=== PATIENT | female | born 2000 | race Caucasian/White ===

== ENCOUNTER 2023-04-17 06:53 | Outpatient (CLI) | payer BC, SELFPAY ==
--- NOTE | 2023-04-17 07:15 | CRLHL7_ITS ---
For Patients: As a result of the Century Cures Act, medical imaging exams and procedure reports are released immediately into your electronic medical record. You may view this report before your referring provider. If you have questions, please contact your health care provider. INDICATION: First trimester scan, establish dates. COMPARISON: None. TECHNIQUE: Real-time sarmiento-scale imaging of the pelvis was performed. FINDINGS: Sonographic imaging demonstrates a single living intrauterine gestation. The embryo demonstrates a cardiac rate measuring 91 beats per minute. The embryo`s crown-rump length measurement of 0.3 cm corresponds to a gestational age of 5 weeks 6 days with a sonographic due date of 12/12/2023. There is a normal-appearing yolk sac. There are no gross abnormalities noted within the embryo at this early state of development. The gestational sac has a normal appearance. There is a perigestational hemorrhage measuring 2.2 x 0.5 x 0.7 cm. The amount of fluid within the sac appears appropriate for gestational age. The cervix is closed. A right-sided uterine fibroid is present measuring 1.2 x 1.1 x 1.1 cm. Corpus luteal cyst right ovary noted measuring 3.8 x 2.5 x 2.6 cm. Normal left ovary. There are no suspicious fluid collections noted in the cul-de-sac. IMPRESSION: Single living intrauterine measuring 5 weeks 6 days and sonographic due date 12/12/2023. heart rate somewhat low at 91 beats per minute and follow-up recommended in 3 weeks. Subchorionic hemorrhage measuring 2.2 x 0.5 x 0.7 cm. Dictated by Bj Shoemaker MD @ 04/17/2023 9:57:36 AM (Electronically Signed)
== END 2023-04-17 06:54 | disposition home or self-care (01) ==
PROVIDERS: PCP Family Medicine; Visit Provider Registered Nurse
DX: Z34.91 Encounter for supervision of normal pregnancy, unspecified, first trimester (principal); O20.9 Hemorrhage in early pregnancy, unspecified; Z3A.01 Less than 8 weeks gestation of pregnancy
CPT/HCPCS: 76817

== ENCOUNTER 2023-04-17 08:15 | Outpatient (CLI) | payer BC, SELFPAY ==
[2023-04-17 12:19] LABS: Chlamydia DNA Amplified* NOT DETECTED (No Detected); GC DNA Amplified* NOT DETECTED (No Detected)
== END 2023-04-17 08:16 | disposition home or self-care (01) ==
PROVIDERS: PCP Family Medicine; Visit Provider Registered Nurse
DX: Z34.91 Encounter for supervision of normal pregnancy, unspecified, first trimester (principal); Z3A.08 8 weeks gestation of pregnancy
CPT/HCPCS: 86592; 86703; 86762; 86787; 86803; 86850; 86900; 86901; 87086; 87340; 87491; 87591

== ENCOUNTER 2023-05-02 13:44 | Outpatient (CLI) | payer BC, SELFPAY ==
--- NOTE | 2023-05-02 14:00 | CRLHL7_ITS ---
For Patients: As a result of the Century Cures Act, medical imaging exams and procedure reports are released immediately into your electronic medical record. You may view this report before your referring provider. If you have questions, please contact your health care provider. INDICATION: Follow-up viability COMPARISON: 04/17/2023 TECHNIQUE: Real-time sarmiento-scale imaging of the pelvis was performed. FINDINGS: Sonographic imaging demonstrates a single living intrauterine gestation. The embryo demonstrates a regular cardiac rate measuring 169 beats per minute. The embryo`s crown-rump length measurement of 1.7 cm corresponds to a gestational age of 8 weeks 1 day with a sonographic due date of 12/11/2023. There is a normal-appearing yolk sac. There are no gross abnormalities noted within the embryo at this early state of development. The gestational sac has a normal appearance. There is no evidence of a perigestational hemorrhage. The amount of fluid within the sac appears appropriate for gestational age. The ovaries are of normal size. Corpus luteal cyst right ovary. There are no suspicious fluid collections noted in the cul-de-sac. IMPRESSION: Single living intrauterine with sonographic gestational age 8 weeks 1 day and sonographic due date 12/11/2023. Dictated by Bj Shoemaker MD @ 05/06/2023 8:40:01 AM (Electronically Signed)
== END 2023-05-02 13:45 | disposition home or self-care (01) ==
LOC: US 13:45
PROVIDERS: PCP Family Medicine; Visit Provider Registered Nurse
DX: Z34.91 Encounter for supervision of normal pregnancy, unspecified, first trimester (principal); Z3A.08 8 weeks gestation of pregnancy
CPT/HCPCS: 76817

== ENCOUNTER 2023-07-24 06:48 | Outpatient (CLI) | payer BC, SELFPAY ==
--- NOTE | 2023-07-24 07:15 | CRLHL7_ITS ---
For Patients: As a result of the Century Cures Act, medical imaging exams and procedure reports are released immediately into your electronic medical record. You may view this report before your referring provider. If you have questions, please contact your health care provider. OB ULTRASOUND ??? ANATOMY SURVEY ROSARIO by LMP: 12/11/2022. GA: 19 w, 6 d. INDICATION: anatomy. FINDINGS: position: Vertex. Cervix: Visualized. Technique: Transabdominal. Length of closed cervix: 3.4 cm. Placenta/cord: Anterior. Technique: Transabdominal. Placenta tip to internal OS: 15.8 cm. Umbilical Cord: 3-vessel cord. Placenta insertion: Central. Amniotic Fluid: 4.8 cm SDP (greater than/equal to: 2- less than 8 cm). SURVEY: Observed Structures Cerebellum: Yes. 2.1 cm; 21 w 0 d. Cisterna Magna: Yes. 6 mm. Nuchal Fold: Yes. 4 mm. Lateral Ventricle: Yes. 5 mm. CSP: Yes. Midline Falx: Yes. Choroid Plexus: Yes. Spine: Yes. Stomach: Yes. Abd Cord Insertion: Yes. Urinary Bladder: Yes. Kidneys: Yes. Diaphragm: Yes. Nose/lips: Yes. Orbital view: Yes. Profile: Yes. Upper Extremities: Yes. Lower Extremities: Yes. Hands: Yes. Feet: Yes, however right foot is poorly seen. Four-Chamber Heart: Yes. LVOT: Yes. RVOT: Yes. 3VV: Yes. 3VTV: Yes. BPD: 4.7 cm. 20 w 2 d, 70 percent. HC: 17.5 cm. 20 w 0 d, 50 percent. AC: 14.8 cm. 20 w 0 d, 51 percent. FL: 2.9 cm. 19 w 0 d, 17 percent. FL/AC: 20 percent. HC/AC Ratio: 1.2. Heart rate: 150 beats per minute. age by this US: 20 w 0 d. ROSARIO by this US: 12/11/2023. EFW: 305 g. Weight: 0 lbs, 11 oz. Percentile by ROSARIO: 34 percent. IMPRESSION: Single live intrauterine gestation. No gross anomalies visualized. Right foot poorly seen. Cielo Aguilera M.D. Diagnostic/Breast Radiologist [employer] [email or web address] [email or web address] wright/Dictated by: Cielo Aguilera MD @ 07/25/2023 2:30:00 PM (Electronically Signed)
== END 2023-07-24 06:49 | disposition home or self-care (01) ==
LOC: US 06:48
PROVIDERS: PCP Family Medicine; Visit Provider Registered Nurse
DX: Z34.92 Encounter for supervision of normal pregnancy, unspecified, second trimester (principal); Z3A.19 19 weeks gestation of pregnancy
CPT/HCPCS: 76805

== ENCOUNTER 2023-07-31 18:19 | Emergency (ER) | payer BC, SELFPAY ==
[2023-07-31 18:23] VITALS: BP 121/72; PULSE 137; RESP 18; TEMP 37.6; O2SAT 98; BMI 26.6
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
[2023-07-31 19:13] VITALS: O2SAT 97
[2023-07-31] MEDS: ONDANSETRON 2 MG/ML inj 4 MG IVP (19:36)
[2023-07-31] MEDS: 0.9 % SODIUM CHLORIDE 1000 ml 1,000 ML IV (19:37)
[2023-07-31 19:43] LABS: Lactate* 1.3 mmol/L (0.5-1.9)
[2023-07-31 19:47] LABS: Basophils Absolute Auto 0.01 K/uL (0.00-0.30); Basophils Percent Auto 0.1 % (0.0-3.0); Eosinophils Absolute Auto 0.01 K/uL (0.00-0.50); Eosinophils Percent Auto 0.1 % (0.0-7.0); Immature Granulocytes Abs Auto 0.05 K/uL (0.00-0.30); Immature Granulocytes Pct Auto 0.5 %; Lymphocytes Percent Auto 3.7 % (20-44); Mean Corpuscular HGB Conc 34 gm/dL (32-36); Mean Corpuscular Hemoglobin 31 pg (26-34); Mean Corpuscular Volume 90 fL (80-100); Monocytes Percent Auto 5.4 % (0.0-11.0); Neutrophils Percent Auto 90.2 % (42.0-72.0); Platelet Count* 191 K/uL (140-440); RDW Coefficient of Variation % 12.6 % (11.5-15.5); Red Blood Count 3.87 m/uL (4.00-5.20); White Blood Count* 10.61 K/uL (4.50-11.00)
[2023-07-31 19:49] LABS: PCR FLU A Negative PCR FLU A (Negative); PCR FLU B Negative PCR FLU B (Negative); PCR RSV Negative PCR RSV (Negative); SARS PCR* POSITIVE SARS-CoV-2 (Negative)
[2023-07-31 19:50] LABS: Slide Review Reflex No
[2023-07-31 20:00] LABS: Appearance Urine Clear (Clear); Bilirubin Urine Negative (Negative); Blood Urine Negative (Negative); Color Urine Yellow (Yellow); Glucose Urine Negative (Negative); Ketones Urine 4+ (Negative); Leukocyte Esterase Urine Trace (Negative); Nitrite Urine Negative (Negative); Protein Urine Negative (Negative); Specific Gravity Urine >= 1.030 (1.000-1.030); Urobilinogen Urine 0.2 (0.2-1.0)
[2023-07-31 20:02] LABS: Chloride* 105 mmol/L (96-114)
[2023-07-31 20:03] LABS: Albumin* 4.1 g/dL (3.3-5.0); Sodium* 132 mmol/L (135-149)
[2023-07-31 20:04] LABS: Potassium* 3.2 mmol/L (3.6-5.1)
[2023-07-31 20:06] LABS: Alanine Aminotransferase* 16 U/L (4-35); Alkaline Phosphatase* 55 U/L (40-150); Anion Gap 10 mEq/L (7-15); Aspartate Amino Transferase* 22 U/L (12-35); Bilirubin Total* 0.3 mg/dL (0.1-1.5); Blood Urea Nitrogen* 4 mg/dL (5-24); Carbon Dioxide* 17 mmol/L (20-32); Creatinine* 0.4 mg/dL (0.5-1.5); Estimated Glomerular Filt Rate 142 ml/min; Glucose* 94 mg/dL (60-115); Total Protein* 7.2 g/dL (6.0-8.3)
[2023-07-31 20:07] LABS: Calcium* 8.9 mg/dL (8.4-10.6)
[2023-07-31 20:09] LABS: C Reactive Protein* 1.7 mg/dL (0.5-1.0)
[2023-07-31 20:27] LABS: Bacteria Urine Moderate; RBC Urine 0-2 (0-2); Squamous Epithelial Cell Urine Moderate (None-Few)
--- NOTE | 2023-07-31 21:03 | PC.NURSE ---
dop tones 150-160s per OB door installer. pt discharged.
[2023-07-31 21:04] VITALS: BP 126/67; PULSE 98; RESP 18; O2SAT 98
== END 2023-07-31 21:04 | disposition home or self-care (01) ==
PROVIDERS: Emergency Provider Family Medicine; PCP Registered Nurse
DX: U07.1 COVID-19 (principal); Z3A.21 21 weeks gestation of pregnancy
CPT/HCPCS: 36415; 80053; 81001; 83605; 85025; 86140; 87086; 87631; 94761; 96374; 99283; 99284; J2405; J7030

== ENCOUNTER 2023-08-22 14:38 | Outpatient (CLI) | payer BC, SELFPAY ==
--- NOTE | 2023-08-22 15:00 | CRLHL7_ITS ---
For Patients: As a result of the Century Cures Act, medical imaging exams and procedure reports are released immediately into your electronic medical record. You may view this report before your referring provider. If you have questions, please contact your health care provider. INDICATION: Follow-up right foot COMPARISON: 07/24/2023 TECHNIQUE: Real time sarmiento scale imaging of the fetus was performed as well as color Doppler analysis of the umbilical vessels. FINDINGS: Sonographic imaging demonstrates a single living intrauterine gestation. Fetus demonstrates a regular cardiac rate of 150 beats per minute. Fetus has a vertex position. The placenta lies anteriorly. Amniotic fluid volume appears normal. Single deepest vertical pocket: 5.2 cm. The cervix is closed and measures 3.6 cm in length. Normal feet. IMPRESSION: Normal feet. Dictated by Bj Shoemaker MD @ 08/22/2023 3:38:13 PM (Electronically Signed)
== END 2023-08-22 14:39 | disposition home or self-care (01) ==
LOC: US 14:38
PROVIDERS: PCP Registered Nurse; Visit Provider Registered Nurse
DX: O35.HXX0 Maternal care for other (suspected) fetal abnormality and damage, fetal lower extremities anomalies, not applicable or unspecified (principal)
CPT/HCPCS: 76816

== ENCOUNTER 2023-09-19 10:03 | Outpatient (CLI) | payer BC, SELFPAY | END 2023-09-19 10:04 | disposition home or self-care (01) | LOC: NFLDREF 09-21 10:42 | PROVIDERS: PCP Registered Nurse; Referring Provider Registered Nurse; Visit Provider Obstetrics & Gynecology | DX: Z34.90 Encounter for supervision of normal pregnancy, unspecified, unspecified trimester (principal) | CPT/HCPCS: 86592 ==

== ENCOUNTER 2023-10-01 13:53 | Outpatient (CLI) | payer BC, SELFPAY ==
[2023-10-01 14:02] VITALS: PULSE 79; O2SAT 100
[2023-10-01 14:15] VITALS: BP 111/69; PULSE 75
[2023-10-01 14:16] VITALS: TEMP 36.7
--- NOTE | 2023-10-01 14:56 | PC.OBNST ---
NST Note NST Note Start: 10/01/23 13:54 Freq: ONCE Status: Active Protocol: Document 10/01/23 14:55 DARLIN (Rec: 10/01/23 14:56 DARLIN [id number]) NST Note 3 Para (# of births) 1 EDC 12/12/23 Gestational Age In Weeks & Days 29 Weeks & 5 Days Patient Presented with Complaint(s) of Decreased movement Reactive Yes Appropriate for Gestational Age Yes RENAN Chew Date 10/01/23 Reactive Yes Appropriate for Gestational Age Yes RENAN Dubois RN Date 10/01/23 OB NST charge Yes Complete NST Note via Write Note Yes The provider's electronic signature indicates the NST is reactive/appropriate for gestational age. *Note to provider: If an addendum is required, open the patient's chart and click on the note under the Nurse/Allied Health tab.
== END 2023-10-01 14:50 | disposition home or self-care (01) ==
LOC: OB OUT 13:53 → OB 13:55
PROVIDERS: Visit Provider Obstetrics & Gynecology
DX: O36.8130 Decreased fetal movements, third trimester, not applicable or unspecified (principal); Z3A.29 29 weeks gestation of pregnancy
CPT/HCPCS: 59025; G0463

== ENCOUNTER 2023-10-15 08:13 | Outpatient (CLI) | payer BC, SELFPAY ==
[2023-10-15 08:25] VITALS: BP 112/67; PULSE 123; RESP 16; TEMP 36.9
[2023-10-15 08:27] VITALS: PULSE 156; O2SAT 99
[2023-10-15 08:55] LABS: Amnisure Rom* Negative
[2023-10-15 08:57] LABS: Clue Cells <20% Clue Cells Seen (None Seen); Trichomonas No Trichomonas Seen (None Seen); Yeast No Yeast Seen (None Seen)
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
--- NOTE | 2023-10-15 11:11 | P.OBLDTN_ITS ---
OB - Triage/Final Diagnosis Visit Information Narrative: Patient is 23 yr old G3/1 at 31.5 wk gestation. She presented to labor and delivery triage with concern for leaking of fluid. She reports gush of clear fluid last night. She had 3-4 more leakage on her peripad last overnight. This morning she felt another trickle of fluid after voiding on the toilet. Her peripad felt damped but not saturated. She is having good movements, denies uterine cramping and vaginal bleeding. No recent intercourse. She denies UTI symptoms. She also denies vaginal irritation and itching. Pt report of intermittent tachycardia and SOB. She denies signs of fainting. She will continue to watch for signs of worsening symptoms and may consider ECG then. Her vitals were stable in triage. FHT was reactive for gestation. Intermittent contractions on the TOCO. Abdomen is soft to palpate. Assessment: Bacterial Vaginosis Plan: Discussed treatment for BV based on wet prep, symptoms, and physical exam suggestive of asymptomatic BV infection. Vaginal metrogel 0.75% 5g x 5 days, at night insert vaginally. Reviewed when to return to clinic. She has appt on 10/17/2023 with [facility] US. Will plan to add DORINDA. I,?Светлана Rios APRN, DONAVON, was present for visit and have reviewed and agree with documentation by the Certified Nurse Midwifery Student. Evaluation Laboratory results: Laboratory Tests 10/15/23 Range/Units 08:40 Membrane Rupture Negative Vaginal Trichomonas No Trichomonas Seen (None Seen) Vaginal Yeast No Yeast Seen (None Seen) Vaginal Clue Cells <20% Clue Cells Seen (None Seen) Vital signs: Vital Signs - 24 hr 10/15/23 08:25 10/15/23 08:25 10/15/23 08:27 Temperature 98.5 F Pulse Rate 123 H Respiratory Rate 16 Blood Pressure 112/67 Pulse Oximetry 99 Comments: VS: See nurse?s notes General Appearance: Alert, appropriate appearance for age. No acute distress Chest/Respiratory Exam: Normal chest wall and respirations. Unlabored breathing. Pelvic Exam Female: Normal external female anatomy. Labia minora with erythema and thin off white discharge. No fishy odor, PH > 4.5. Significant discomfort with vaginal exam hence speculum exam was not done per patient request to stop. AmniSure negative. Wet prep shows <20% clue cells. Psychiatric Exam: Alert and oriented, appropriate affect. Fetus (Single) Heart Rate Baseline: 135 Acute Specialist Variability: Moderate (6-25) Monitor Accelerations: Absent Monitor Decelerations: None Final Diagnosis (1) Bacterial vaginosis in : Status: Acute Problem details: Rx sent for Metrogel Hs x 5 days. Has clinic visit with US on . Routine care. (2) 31 to 32 weeks gestation of : Status: Acute
--- NOTE | 2023-10-15 12:03 | PC.OBNST ---
NST Note NST Note Start: 10/15/23 08:19 Freq: ONCE Status: Discharge Protocol: Document 10/15/23 09:30 CHEYENNE (Rec: 10/15/23 12:03 CHEYENNE [id number]) NST Note 3 Para (# of births) 1 EDC 12/12/23 Gestational Age In Weeks & Days 31 Weeks & 5 Days Patient Presented with Complaint(s) of Leaking fluid,Other Other Complaints Feels off Reactive Yes Appropriate for Gestational Age Yes RENAN Bellamy RN Date 10/15/23 Reactive Yes Appropriate for Gestational Age Yes RENAN Dubois RN Date 10/15/23 OB NST charge Yes Complete NST Note via Write Note Yes The provider's electronic signature indicates the NST is reactive/appropriate for gestational age. *Note to provider: If an addendum is required, open the patient's chart and click on the note under the Nurse/Allied Health tab.
== END 2023-10-15 10:03 | disposition home or self-care (01) ==
LOC: OB OUT 08:15 → OB 08:16
PROVIDERS: Visit Provider Advanced Practice Midwife
DX: Z34.93 Encounter for supervision of normal pregnancy, unspecified, third trimester (principal); Z3A.32 32 weeks gestation of pregnancy
CPT/HCPCS: 59025; 84112; 87210; G0463

== ENCOUNTER 2023-10-17 12:55 | Outpatient (CLI) | payer BC, SELFPAY ==
--- NOTE | 2023-10-17 13:00 | US_ITS ---
Patient: CHAPIS MALDONADO Facility:?[facility] Patient ID:?[id number] Site Patient ID:?[id number]. Site :?[id number] Study:?US-OB Pelvis OB F/U with DORINDA-10/17/2023 1:58:05 PM Ordering Physician:Anne Baltazar Final Report: INDICATION: Third trimester scan, evaluate growth. COMPARISON: 08/22/2023 TECHNIQUE: Real time sarmiento scale imaging of the fetus. FINDINGS: Sonographic imaging demonstrates a single living intrauterine gestation. Fetus demonstrates a regular cardiac rate of 149 beats per minute. Fetus has a vertex position. The placenta lies anteriorly. Amniotic fluid volume appears normal and there is a single deepest vertical pocket: 5.3 cm. DORINDA 13.2 cm. The estimated weight is 2009gm which lies at the 59th %. On the prior OB ultrasound exam dated 07/24/2023 the estimated weight was at the 34th%. BPD 51st percentile. HC is 51st percentile. AC is 63rd percentile. FL 55th percentile. The HC/AC ratio measures 1.06 range (0.96-1.12). IMPRESSION: Sonographic gestational age 32 weeks 5 days and sonographic due date of 12/07/2023. Sonographic age is 5 days ahead of the clinical age. Estimated weight 59th percentile. Abdominal circumference 63rd percentile. Dictated by Bj Shoemaker MD @ 10/18/2023 9:19:06 AM Signed by:?Bj Shoemaker MD @10/18/2023 9:19:06 AM (Electronic Signature)
== END 2023-10-17 12:56 | disposition home or self-care (01) ==
LOC: US 12:55
PROVIDERS: Visit Provider Obstetrics & Gynecology
DX: Z34.93 Encounter for supervision of normal pregnancy, unspecified, third trimester (principal); Z3A.32 32 weeks gestation of pregnancy
CPT/HCPCS: 76816

== ENCOUNTER 2023-11-04 17:49 | Outpatient (CLI) | payer BC, SELFPAY ==
[2023-11-04] VITALS (12 sets, daily range): BP systolic 108; BP diastolic 70; PULSE 94–123; RESP 16; TEMP 36.9; O2SAT 98–99
[2023-11-04 19:15] LABS: Appearance Urine Clear (Clear); Bilirubin Urine Negative (Negative); Blood Urine Negative (Negative); Color Urine Yellow (Yellow); Glucose Urine Negative (Negative); Ketones Urine Trace (Negative); Leukocyte Esterase Urine Negative (Negative); Nitrite Urine Negative (Negative); Protein Urine Trace (Negative); Urobilinogen Urine 0.2 (0.2-1.0)
[2023-11-04 19:16] LABS: Amnisure Rom* Negative
[2023-11-04 19:26] LABS: Bacteria Urine Few; RBC Urine 0-2 (0-2); Squamous Epithelial Cell Urine Few (None-Few)
[2023-11-04 19:52] LABS: Hematocrit 35.8 % (33.0-51.0); Hemoglobin* 11.5 gm/dL (12.0-16.0); Mean Corpuscular HGB Conc 32 gm/dL (32-36); Mean Corpuscular Hemoglobin 31 pg (26-34); Mean Corpuscular Volume 97 fL (80-100); Platelet Count* 246 K/uL (140-440); Red Blood Count 3.68 m/uL (4.00-5.20); White Blood Count* 13.02 K/uL (4.50-11.00)
[2023-11-04 19:59] LABS: Slide Review Reflex No
[2023-11-04 21:14] LABS: Bacterial Vaginosis* Negative (Negative); Candida glab/krus NOT DETECTED (No Detected); Candida species NOT DETECTED (No Detected); Trichomonas vaginalis NOT DETECTED (No Detected)
--- NOTE | 2023-11-04 21:22 | US_ITS ---
Patient: CHAPIS MALDONADO Facility:?[facility] Patient ID:?[id number] Site Patient ID:?[id number]. Site :?[id number] Study:?US-OB Pelvis LIMITED-11/04/2023 9:56:18 PM Ordering Physician:SERAFIN SPAIN Final Report: Indication: RULE OUT PLACENTA ABRUPTION Technique: Grayscale and color Doppler ultrasound of the fetus performed. Comparison: 10/17/2023 Findings: heart rate 152 beats per minute. Mildly heterogeneous placenta, grade 1/2. No placental fluid collections. No abnormal vascularity. Normal amniotic fluid with single deepest pocket 6.6 cm. position is cephalic. Placenta is anterior. Impression: No evidence of placental abruption. Dictated by Bj Shoemaker MD @ 11/05/2023 7:49:56 AM Signed by:?Bj Shoemaker MD @11/05/2023 7:49:56 AM (Electronic Signature)
[2023-11-04 21:59] LABS: Albumin* 3.6 g/dL (3.3-5.0); Chloride* 105 mmol/L (96-114); Potassium* 3.7 mmol/L (3.6-5.1); Sodium* 135 mmol/L (135-149)
[2023-11-04 22:01] LABS: Amylase* 66 U/L (18-89)
[2023-11-04 22:02] LABS: Alanine Aminotransferase* 14 U/L (4-35); Alkaline Phosphatase* 94 U/L (40-150); Anion Gap 7 mEq/L (7-15); Aspartate Amino Transferase* 23 U/L (12-35); Bilirubin Total* 0.2 mg/dL (0.1-1.5); Calcium* 9.3 mg/dL (8.4-10.6); Carbon Dioxide* 23 mmol/L (20-32); Creatinine* 0.5 mg/dL (0.5-1.5); Estimated Glomerular Filt Rate 134 ml/min; Glucose* 91 mg/dL (60-115); Lipase* 112 U/L (23-300)
[2023-11-04 22:54] LABS: Albumin* 3.7 g/dL (3.3-5.0)
[2023-11-04 22:57] LABS: Aspartate Amino Transferase* 23 U/L (12-35); Bilirubin Total* 0.2 mg/dL (0.1-1.5)
[2023-11-04 22:58] LABS: Alanine Aminotransferase* 14 U/L (4-35); Alkaline Phosphatase* 94 U/L (40-150); Blood Urea Nitrogen* 6 mg/dL (5-24)
--- NOTE | 2023-11-04 23:27 | PM.OBLDTN ---
OB - Triage/Final Diagnosis Visit Information Date Seen: 11/04/23 Date of evaluation: 11/04/23 Narrative: The patient is a 23 year old 3 para 1 at 34.4 weeks gestation by first trimester US, who presents with abdominal pressure and pain which had increased throughout the day. She complains of feeling like she is constipated today although had normal BM yesterday. Today has passed two small hard stools only. She states she feels like her body is trying to pass stool but is unable. She was also concerned that baby was not moving as often as before, although since admission she report +FM. Reason for evaluation: other Evaluation Cervical dilation (cm): 0 Cervical effacement (%): 0 Laboratory results: Laboratory Tests 11/04/23 11/04/23 11/04/23 Range/Units 20:30 20:30 20:30 WBC (4.50-11.00) K/uL RBC (4.00-5.20) m/uL Hgb (12.0-16.0) gm/dL Hct (33.0-51.0) % MCV (80-100) fL MCH (26-34) pg MCHC (32-36) gm/dL Plt Count (140-440) K/uL Sodium (135-149) mmol/L Potassium (3.6-5.1) mmol/L Chloride (96-114) mmol/L Carbon Dioxide (20-32) mmol/L Anion Gap (7-15) mEq/L BUN (5-24) mg/dL Creatinine (0.5-1.5) mg/dL Estimated GFR ml/min Glucose (60-115) mg/dL Calcium (8.4-10.6) mg/dL Total Bilirubin (0.1-1.5) mg/dL Direct Bilirubin (0.0-0.5) mg/dL AST (12-35) U/L ALT (4-35) U/L Alkaline Phosphatase 94 (40-150) U/L Total Protein 7.0 7.0 (6.0-8.3) g/dL Albumin 3.7 3.6 (3.3-5.0) g/dL Amylase 66 (18-89) U/L Lipase 112 (23-300) U/L Urine Color (Yellow) Urine Appearance (Clear) Urine pH (5.0-8.5) Ur Specific [place] (1.000-1.030) Urine Protein (Negative) Urine Glucose (UA) (Negative) Urine Ketones (Negative) Urine Blood (Negative) Urine Nitrite (Negative) Urine Bilirubin (Negative) Urine Urobilinogen (0.2-1.0) Ur Leukocyte Esterase (Negative) Urine RBC (0-2) Urine WBC (0-5) Ur Squamous Epith Cells (None-Few) Urine Bacteria (None) Membrane Rupture Vaginal Trichomonas Vaginal Yeast Vaginal Clue Cells Vaginal Bacterial Vaginosis (Negative) Vaginal Sherin species (No Detected) Vag C. glabrata/krusei (No Detected) Vag T. vaginalis (No Detected) 11/04/23 11/04/23 11/04/23 Range/Units 20:30 20:30 20:30 WBC (4.50-11.00) K/uL RBC (4.00-5.20) m/uL Hgb (12.0-16.0) gm/dL Hct (33.0-51.0) % MCV (80-100) fL MCH (26-34) pg MCHC (32-36) gm/dL Plt Count (140-440) K/uL Sodium (135-149) mmol/L Potassium (3.6-5.1) mmol/L Chloride (96-114) mmol/L Carbon Dioxide (20-32) mmol/L Anion Gap (7-15) mEq/L BUN (5-24) mg/dL Creatinine (0.5-1.5) mg/dL Estimated GFR ml/min Glucose (60-115) mg/dL Calcium (8.4-10.6) mg/dL Total Bilirubin 0.2 (0.1-1.5) mg/dL Direct Bilirubin 0.0 (0.0-0.5) mg/dL AST 23 23 (12-35) U/L ALT 14 14 (4-35) U/L Alkaline Phosphatase 94 (40-150) U/L Total Protein (6.0-8.3) g/dL Albumin (3.3-5.0) g/dL Amylase (18-89) U/L Lipase (23-300) U/L Urine Color (Yellow) Urine Appearance (Clear) Urine pH (5.0-8.5) Ur Specific [place] (1.000-1.030) Urine Protein (Negative) Urine Glucose (UA) (Negative) Urine Ketones (Negative) Urine Blood (Negative) Urine Nitrite (Negative) Urine Bilirubin (Negative) Urine Urobilinogen (0.2-1.0) Ur Leukocyte Esterase (Negative) Urine RBC (0-2) Urine WBC (0-5) Ur Squamous Epith Cells (None-Few) Urine Bacteria (None) Membrane Rupture Vaginal Trichomonas Vaginal Yeast Vaginal Clue Cells Vaginal Bacterial Vaginosis (Negative) Vaginal Sherin species (No Detected) Vag C. glabrata/krusei (No Detected) Vag T. vaginalis (No Detected) 11/04/23 11/04/23 11/04/23 Range/Units 20:30 20:00 19:47 WBC 13.02 H (4.50-11.00) K/uL RBC 3.68 L (4.00-5.20) m/uL Hgb 11.5 L (12.0-16.0) gm/dL Hct 35.8 (33.0-51.0) % MCV 97 (80-100) fL MCH 31 (26-34) pg MCHC 32 (32-36) gm/dL Plt Count 246 (140-440) K/uL Sodium 135 (135-149) mmol/L Potassium 3.7 (3.6-5.1) mmol/L Chloride 105 (96-114) mmol/L Carbon Dioxide 23 (20-32) mmol/L Anion Gap 7 (7-15) mEq/L BUN 6 (5-24) mg/dL Creatinine 0.5 (0.5-1.5) mg/dL Estimated GFR 134 ml/min Glucose 91 (60-115) mg/dL Calcium 9.3 (8.4-10.6) mg/dL Total Bilirubin 0.2 (0.1-1.5) mg/dL Direct Bilirubin (0.0-0.5) mg/dL AST (12-35) U/L ALT (4-35) U/L Alkaline Phosphatase (40-150) U/L Total Protein (6.0-8.3) g/dL Albumin (3.3-5.0) g/dL Amylase (18-89) U/L Lipase (23-300) U/L Urine Color (Yellow) Urine Appearance (Clear) Urine pH (5.0-8.5) Ur Specific [place] (1.000-1.030) Urine Protein (Negative) Urine Glucose (UA) (Negative) Urine Ketones (Negative) Urine Blood (Negative) Urine Nitrite (Negative) Urine Bilirubin (Negative) Urine Urobilinogen (0.2-1.0) Ur Leukocyte Esterase (Negative) Urine RBC (0-2) Urine WBC (0-5) Ur Squamous Epith Cells (None-Few) Urine Bacteria (None) Membrane Rupture Vaginal Trichomonas Cancelled Vaginal Yeast Cancelled Vaginal Clue Cells Cancelled Vaginal Bacterial Vaginosis (Negative) Vaginal Sherin species (No Detected) Vag C. glabrata/krusei (No Detected) Vag T. vaginalis (No Detected) 11/04/23 11/04/23 11/04/23 Range/Units 19:19 18:55 18:30 WBC (4.50-11.00) K/uL RBC (4.00-5.20) m/uL Hgb (12.0-16.0) gm/dL Hct (33.0-51.0) % MCV (80-100) fL MCH (26-34) pg MCHC (32-36) gm/dL Plt Count (140-440) K/uL Sodium (135-149) mmol/L Potassium (3.6-5.1) mmol/L Chloride (96-114) mmol/L Carbon Dioxide (20-32) mmol/L Anion Gap (7-15) mEq/L BUN (5-24) mg/dL Creatinine (0.5-1.5) mg/dL Estimated GFR ml/min Glucose (60-115) mg/dL Calcium (8.4-10.6) mg/dL Total Bilirubin (0.1-1.5) mg/dL Direct Bilirubin (0.0-0.5) mg/dL AST (12-35) U/L ALT (4-35) U/L Alkaline Phosphatase (40-150) U/L Total Protein (6.0-8.3) g/dL Albumin (3.3-5.0) g/dL Amylase (18-89) U/L Lipase (23-300) U/L Urine Color Yellow (Yellow) Urine Appearance Clear (Clear) Urine pH 7.0 (5.0-8.5) Ur Specific [place] 1.020 (1.000-1.030) Urine Protein Trace A (Negative) Urine Glucose (UA) Negative (Negative) Urine Ketones Trace A (Negative) Urine Blood Negative (Negative) Urine Nitrite Negative (Negative) Urine Bilirubin Negative (Negative) Urine Urobilinogen 0.2 (0.2-1.0) Ur Leukocyte Esterase Negative (Negative) Urine RBC 0-2 (0-2) Urine WBC 2-5 (0-5) Ur Squamous Epith Cells Few (None-Few) Urine Bacteria Few A (None) Membrane Rupture Negative Vaginal Trichomonas Vaginal Yeast Vaginal Clue Cells Vaginal Bacterial Vaginosis Negative (Negative) Vaginal Sherin species NOT DETECTED (No Detected) Vag C. glabrata/krusei NOT DETECTED (No Detected) Vag T. vaginalis NOT DETECTED (No Detected) Vital signs: Vital Signs - 24 hr 11/04/23 18:05 11/04/23 18:07 11/04/23 18:11 Temperature 98.5 F Pulse Rate Respiratory Rate 16 Blood Pressure 108/70 Pulse Oximetry 99 11/04/23 18:11 11/04/23 18:12 11/04/23 18:17 Temperature Pulse Rate 114 H Respiratory Rate Blood Pressure Pulse Oximetry 98 99 11/04/23 18:22 11/04/23 18:27 11/04/23 18:32 Temperature Pulse Rate Respiratory Rate Blood Pressure Pulse Oximetry 98 98 98 11/04/23 18:37 11/04/23 18:42 11/04/23 18:47 Temperature Pulse Rate Respiratory Rate Blood Pressure Pulse Oximetry 99 99 99 11/04/23 18:52 Temperature Pulse Rate Respiratory Rate Blood Pressure Pulse Oximetry 99 Comments: On exam her abdomen is gravid, tender to palpation over all 4 quadrants. Rare contractions are seen on the EFM. Abdomen feels distended but not rigid. Able to indent abdomen with finger while palpating. No vaginal discharge, no bleeding. An enema was given while here with no results. RN did rectal exam and was able to feel stool but was high up. A US was done to rule out placental abruption, no signs of abruption seen. Fetus (Single) Heart Rate Baseline: 130 Penit[facility]iary Variability: Moderate (6-25) Monitor Accelerations: Present Monitor Decelerations: None Final Diagnosis (1) Constipation: Status: Acute Problem details: at 34.4 weeks with pain from constipation. Encouraged hydration, high fiber diet, bowel medication OTC instructions reviewed and encouraged to use daily until stool is passed. Pending lab work to be called to patient if abnormal. All labs resulted so far are WNL.
--- NOTE | 2023-11-05 00:34 | PC.OBNST ---
NST Note NST Note Start: 11/04/23 18:13 Freq: ONCE Status: Active Protocol: Document 11/04/23 23:55 KIRTI (Rec: 11/05/23 00:34 KIRTI [id number]) NST Note 3 Para (# of births) 1 EDC 12/12/23 Gestational Age In Weeks & Days 34 Weeks & 5 Days Patient Presented with Complaint(s) of Pain If Pain, describe location Low back, abdomen and tailbone pain. Other Complaints Constipation and some decreased movement before arrival Reactive Yes RENAN Meraz, RENAN Date 11/04/23 Reactive Yes RENAN Lugo CNM Date 11/04/23 OB NST charge Yes Complete NST Note via Write Note Yes The provider's electronic signature indicates the NST is reactive/appropriate for gestational age. *Note to provider: If an addendum is required, open the patient's chart and click on the note under the Nurse/Allied Health tab.
== END 2023-11-04 23:50 | disposition home or self-care (01) ==
LOC: OB OUT 17:49 → OB 17:50
PROVIDERS: Visit Provider Advanced Practice Midwife
DX: O26.893 Other specified pregnancy related conditions, third trimester (principal); M54.50 Low back pain, unspecified; Z3A.34 34 weeks gestation of pregnancy
CPT/HCPCS: 36415; 59025; 76815; 80053; 80076; 81001; 81003; 81513; 82150; 83690; 84112; 85027; 87086; 87210; 87481; 87661; G0463

== ENCOUNTER 2023-11-14 08:36 | Outpatient (CLI) | payer BC, SELFPAY ==
[2023-11-15 08:42] LABS: Strep B DNA Probe POSITIVE (Negative)
[2023-11-15 08:56] LABS: Strep B Susceptibility Needed? No
== END 2023-11-14 08:37 | disposition home or self-care (01) ==
LOC: NFLDREF 08:37
PROVIDERS: Visit Provider Advanced Practice Midwife
DX: Z34.93 Encounter for supervision of normal pregnancy, unspecified, third trimester (principal)
CPT/HCPCS: 87081; 87653

== ENCOUNTER 2023-11-21 16:48 | Outpatient (CLI) | payer BC, SELFPAY ==
[2023-11-21 17:04] VITALS: BP 120/76; PULSE 103; RESP 16; TEMP 36.9
[2023-11-21 17:34] LABS: Amnisure Rom* Negative
--- NOTE | 2023-11-21 18:49 | PM.OBLDTN ---
OB - Triage/Final Diagnosis Visit Information Date Seen: 11/21/23 Date of evaluation: 11/21/23 Narrative: The patient is a 23 year old 3 para 1 at 37.0 weeks gestation by first trimester ultrasound, who presents with leaking of fluid after urinating today. She noted some fluid trickling down her legs when standing up after voiding this afternoon. Described her urine as yellow and this fluid was clear in color. She has felt more wet since this time no large gushes of fluid but more trickling feeling. She denies any itching or irritation today. She stated she had a similar episode in her previous but it was earlier in that when it happened. Reason for evaluation: other Evaluation Laboratory results: Laboratory Tests 11/21/23 11/21/23 Range/Units 18:21 17:04 Membrane Rupture Negative Vaginal Trichomonas Pending Vaginal Yeast Pending Vaginal Clue Cells Pending Vital signs: Vital Signs - 24 hr 11/21/23 17:04 11/21/23 17:04 Temperature 98.5 F Pulse Rate 103 H Respiratory Rate 16 Blood Pressure 120/76 Comments: Sterile speculum done after pooling, noted white watery fluid in vault. No leaking from cervix seen. Wet prep and fern obtained. Fern negative. Wet prep is pending, will call patient if treatment is needed. Cervical exam deferred at this time. Fetus (Single) Heart Rate Baseline: 135 Vegetable Tester Variability: Moderate (6-25) Monitor Accelerations: Present Monitor Decelerations: None Final Diagnosis (1) Vaginal discharge during : Status: Acute Problem details: Plan Discharge home, keep next clinic appointment as scheduled. Pt instructed to return if leaking continues, or she has larger gushes. Return for signs of labor, she is joshua on the monitor but denies pain at this time. Will return if increase in intensity of contractions or pain.
[2023-11-21 18:56] LABS: Clue Cells <20% Clue Cells Seen (None Seen); Trichomonas No Trichomonas Seen (None Seen); Yeast No Yeast Seen (None Seen)
--- NOTE | 2023-11-21 19:05 | PC.OBNST ---
The provider's electronic signature indicates the NST is reactive/appropriate for gestational age. *Note to provider: If an addendum is required, open the patient's chart and click on the note under the Nurse/Allied Health tab.
== END 2023-11-21 18:54 | disposition home or self-care (01) ==
LOC: OB OUT 16:49 → OB 16:49
PROVIDERS: Visit Provider Advanced Practice Midwife
DX: O47.1 False labor at or after 37 completed weeks of gestation (principal); O26.893 Other specified pregnancy related conditions, third trimester; N89.8 Other specified noninflammatory disorders of vagina; Z3A.37 37 weeks gestation of pregnancy
CPT/HCPCS: 59025; 84112; 87210; G0463

== ENCOUNTER 2023-12-09 00:18 | Inpatient (IN) | payer BC, SELFPAY ==
[2023-12-08 22:58] VITALS: BP 125/68; PULSE 86; TEMP 36.7
[2023-12-09] VITALS (20 sets, daily range): BP systolic 107–132; BP diastolic 56–82; PULSE 85–97; RESP 12–16; TEMP 36.5–36.7; O2SAT 98
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
[2023-12-09] MEDS: AMPICILLIN 2 GM in 0.9 % SODIUM CHLORIDE Mini-bag 100 ML IVPB (00:38)
[2023-12-09 00:43] LABS: Basophils Percent Auto 0.3 % (0.0-3.0); Eosinophils Percent Auto 0.7 % (0.0-7.0); Hematocrit 36.2 % (33.0-51.0); Hemoglobin* 11.7 gm/dL (12.0-16.0); Immature Granulocytes Pct Auto 1.1 %; Lymphocytes Percent Auto 22.7 % (20-44); Mean Corpuscular HGB Conc 32 gm/dL (32-36); Mean Corpuscular Hemoglobin 30 pg (26-34); Mean Corpuscular Volume 92 fL (80-100); Monocytes Percent Auto 5.2 % (0.0-11.0); Platelet Count* 267 K/uL (140-440); Red Blood Count 3.94 m/uL (4.00-5.20)
[2023-12-09 00:47] LABS: Slide Review Reflex No
[2023-12-09] MEDS: LACTATED RINGERS 1000 ML 1,000 ML 925 ML IV (01:15)
[2023-12-09] MEDS: lidocaine HCL 2 % JELLY (TOP) STERILE 6 ML TOPICAL (01:50)
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
[2023-12-09] MEDS: IBUPROFEN 600 MG TABLET PO ×2 (08:42→20:06)
[2023-12-09] MEDS: DOCUSATE SODIUM 100 MG CAPSULE PO (10:50)
[2023-12-10 01:17] VITALS: BP 108/68; PULSE 82; RESP 16; TEMP 36.4; O2SAT 97
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
[2023-12-10 08:19] VITALS: BP 111/76; PULSE 81; RESP 16; TEMP 36.7; O2SAT 97
[2023-12-10] MEDS: IBUPROFEN 600 MG TABLET PO (11:57)
== END 2023-12-10 16:00 | disposition home or self-care (01) | DRG 560 ==
LOC: OB OUT 01:19 → OB 01:19
PROVIDERS: Admitting Provider Advanced Practice Midwife; Visit Provider Advanced Practice Midwife
DX: O99.824 Streptococcus B carrier state complicating childbirth (principal); O77.0 Labor and delivery complicated by meconium in amniotic fluid; O62.3 Precipitate labor; O70.1 Second degree perineal laceration during delivery; K21.9 Gastro-esophageal reflux disease without esophagitis; O99.344 Other mental disorders complicating childbirth; F41.9 Anxiety disorder, unspecified; F32.A Depression, unspecified; Z91.410 Personal history of adult physical and sexual abuse; O34.13 Maternal care for benign tumor of corpus uteri, third trimester; D25.9 Leiomyoma of uterus, unspecified; Z3A.39 39 weeks gestation of pregnancy; Z37.0 Single live birth
CPT/HCPCS: 36415; 85025; 86850; 86900; 86901; G0463; A9270; J0290; J2371; J7120

== ENCOUNTER 2023-12-16 09:07 | Outpatient (CLI) | payer BC, SELFPAY ==
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
== END 2023-12-16 09:08 | disposition home or self-care (01) ==
PROVIDERS: Visit Provider Registered Nurse
DX: Z39.1 Encounter for care and examination of lactating mother (principal)
CPT/HCPCS: G0463

== ENCOUNTER 2025-03-31 11:53 | Outpatient (CLI) | payer BC, OTHER, SELFPAY ==
--- NOTE | 2025-03-31 12:15 | CRLHL7_ITS ---
For Patients: As a result of the Century Cures Act, medical imaging exams and procedure reports are released immediately into your electronic medical record. You may view this report before your referring provider. If you have questions, please contact your health care provider. OB ULTRASOUND FIRST TRIMESTER TRANSVAGINAL INDICATION: Dating and viability. TECHNIQUE: Real time sarmiento scale imaging of the fetus was performed. Transvaginal imaging performed. LMP: 01/26/2025. ROSARIO by LMP: 11/02/2025. GA: 9 w, 1 d. Previous US: No. Gestational sac: 0.50 cm. Yolk sac: N/V. Right ovary: Within normal limits. 4.1 x 2.5 x 2.6 cm. Left ovary: Within normal limits. 2.9 x 2.0 x 2.4 cm. IMPRESSION: 1. Intrauterine gestational sac measures 5 mm, 5 weeks 2 days. No yolk sac or pole. Follow-up in 2 weeks recommended. 2. Subchorionic hemorrhage measures 1.2 x 1.2 x 1.2 cm. 3. Normal ovaries. No ectopic . Bj Shoemaker M.D. Diagnostic Radiologist [email or web address] SP/Dictated by: Bj Shoemaker MD @ 03/31/2025 4:17:00 PM (Electronically Signed)
== END 2025-03-31 11:54 | disposition home or self-care (01) ==
LOC: US 11:57
PROVIDERS: Visit Provider Registered Nurse
DX: Z34.91 Encounter for supervision of normal pregnancy, unspecified, first trimester (principal); O20.9 Hemorrhage in early pregnancy, unspecified; Z3A.09 9 weeks gestation of pregnancy
CPT/HCPCS: 76817; 84702

== ENCOUNTER 2025-04-02 08:45 | Outpatient (CLI) | payer BC, OTHER, SELFPAY | END 2025-04-02 08:46 | disposition home or self-care (01) | LOC: NFLDREF 04-06 03:04 | PROVIDERS: Visit Provider Registered Nurse | DX: Z34.81 Encounter for supervision of other normal pregnancy, first trimester (principal) | CPT/HCPCS: 84702 ==

== ENCOUNTER 2025-04-13 12:46 | Outpatient (CLI) | payer BC, OTHER, SELFPAY ==
--- NOTE | 2025-04-13 13:00 | CRLHL7_ITS ---
For Patients: As a result of the Century Cures Act, medical imaging exams and procedure reports are released immediately into your electronic medical record. You may view this report before your referring provider. If you have questions, please contact your health care provider. OB ULTRASOUND INDICATION: Follow-up dating and viability. TECHNIQUE: Real time grayscale imaging of the fetus was performed. Transvaginal. Transvaginal imaging performed to better demonstrate the endometrium and ovaries. LMP: 01/26/2025. ROSARIO by LMP: 11/02/2025. GA: 11 w, 0 d. Previous US: Yes 03/31/2025. ROSARIO by US: N/A. GA: 5 w, 2 d. CRL: 0.8 cm. 6 w 5 d. ROSARIO: 12/02/2025. FHR: 120 BPM. Gestational sac: 2.2 cm. Appears within normal limits. Yolk sac: 2.4 mm. Appears within normal limits. Right ovary: Within normal limits. 3.9 x 2.3 x 2.3 cm. CL. Left ovary: 3.1 x 2.0 x 1.9 cm. IMPRESSION: 1. Single living intrauterine measures 6 weeks 5 days with sonographic due date 12/02/2025. 2. Uterine fibroid is present which measures 1.6 x 1.3 x 1.3 cm. Bj Shoemaker M.D. Diagnostic Radiologist [email or web address] LYRIC/adriana wright/Dictated by: Bj Shoemaker MD @ 04/13/2025 4:08:00 PM (Electronically Signed)
== END 2025-04-13 12:47 | disposition home or self-care (01) ==
LOC: US 12:46
PROVIDERS: Visit Provider Registered Nurse
DX: O34.11 Maternal care for benign tumor of corpus uteri, first trimester (principal); D25.9 Leiomyoma of uterus, unspecified; Z3A.01 Less than 8 weeks gestation of pregnancy
CPT/HCPCS: 76817; 83021; 86592; 86703; 86704; 86706; 86762; 86787; 86803; 86850; 86900; 86901; 87086; 87340; 87491; 87591

== ENCOUNTER 2025-05-24 10:21 | Emergency (ER) | payer BC, OTHER, SELFPAY ==
--- OUTSIDE RECORDS SUMMARY | 2025-05-24 10:26 | XMS_ITS | Clinical Summary ---
Author Organization [facility] Address [address] [place] [address] Care Team Providers Care Rabies Inspector Name Role Phone No Ref-Primary, Physician Primary Care Provider Allergies Active Allergy Reactions Criticality Noted Date Comments Latex Hives Medium 04/02/2022 Oral hives. Has had reaction more than once. Responded well to benadryl - neber needed epinephrine Medications Vit-Fe Fumarate-FA ( MULTIVITAMIN W/IRON) 27-0.8 MG tablet Take 1 tablet by mouth daily Active acetaminophen (TYLENOL) 325 MG tabletIndications : (normal spontaneous vaginal delivery) Take 2 tablets (650 mg) by mouth every 4 hours as needed for mild pain or fever (greater than or equal to 38 C /100.4 F (oral) or 38.5 C/ 101.4 F (core).) 2 Active docusate sodium (COLACE) 100 MG capsuleIndication s: (normal spontaneous vaginal delivery) Take 1 capsule (100 mg) by mouth daily 2 Active ibuprofen (ADVIL/MOTRIN) 800 MG tabletIndications : (normal spontaneous vaginal delivery) Take 1 tablet (800 mg) by mouth every 8 hours as needed for moderate pain (For mild to moderate pain.) 2 Active Active Problems Problem Noted Date Diagnosed Date PTSD (post-traumatic stress disorder) 04/20/2022 Normal labor 04/17/2022 Encounter for triage in patient 022 Resolved Problems Problem Noted Date Diagnosed Date Resolved Date NO ACTIVE PROBLEMS 01/05/2011 2 Immunizations Immunization Administration Dates Next Due Comvax (HIB/HepB) 1999,1999 DTAP (<7y) 03/21/2004,1999,1999 ,07/13/1997 HepB 1999 Influenza (IIV3) PF 06/15/2003,07/09/2002,2001 MMR (MMRII) 03/21/2004,08/29/2000 Pneumococcal (PCV 7) 08/29/2000,04/18/2000,12/04 Poliovirus, inactivated (IPV) 03/21/2004, 000,1999,1999 TRIHIBIT (DTAP/HIB, <7y) 08/29/2000 Varicella (Varivax) 04/18/2000 Family History Medical History Relation Comments Allergies Maternal Grandmother seasonal Respiratory Maternal Grandmother asthma Respiratory Maternal Uncle asthma Allergies Mother seasonal Gastrointestinal Disease Mother ulcer Cerebrovascular Disease Paternal Aunt brain an urism Allergies Paternal Grandmother seasonal Gastrointestinal Disease Paternal Grandmother ga llstones Gynecology Paternal Grandmother prolapse of bladder Osteoporosis Paternal Grandmother Allergies Sister seasonal Relation Status Comments Maternal Grandmother Maternal Uncle Mother Paternal Aunt Paternal Grandmother Sister Social History Tobacco Use Types Packs/Day Years Used Date Smoking Tobacco: Never Smokeless Tobacco: Never Alcohol Use Standard Drinks/Week Comments Not Currently 0 (1 standard drink = 0.6 oz pur e alcohol) Adolescent Education Answer Date Record ed Getting School Help Needed Not on file 05/20 Comments No Sex and Gender Information Value Date Recorded Sex Assigned at Not on file Legal Sex 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 Gender Identity Not on file Sexual Orientation Not on file Last Filed Vital Signs Vital Sign Reading Time Taken Comments Blood Pressure 109/66 04/20/2022 9:00 AM CDT Pulse 81 04/20/2022 9:00 AM CDT Temperature 36.6 C (97.8 F) 04/19/2022 3:22 PM CDT Respiratory Rate 16 04/20/2022 9:00 AM CDT Oxygen Saturation 98% 04/20/2022 9:00 AM CDT Inhaled Oxygen Concentration - - Weight 81.2 kg (179 lb) 04/17/2022 10:00 PM CDT Height 160 cm (5' 3) 04/17/2022 10:00 PM CDT Body Mass Index 31.71 04/17/2022 10:00 PM CDT Plan of Treatment Not on file Insurance [employer] CHOICE [id number] (Home) [address] [place] [id number] [facility] Advance Directives For more information, please contact: [phone] * Full Code (Latest Code Status on File) Date Activated Date Inactivated Comments 04/17/2022 10:36 PM 04/20/2022 4:27 PM All basic a nd advanced life-sustaining interventions are performed as appropriate Question Answer Comments Code status determined by: Discussion with patie nt/ legal decision maker Care Teams Rabies Inspector Relationship Specialty Start Date End Date No Ref-Primary, Physician PCP - General 04/18/22
--- OUTSIDE RECORDS SUMMARY | 2025-05-24 10:26 | XMS_ITS | Encounter Summary ---
Author Organization [facility] Address [address] [place] [address] Care Team Providers Care Education Managers Name Role Phone Paris Cordova MD Primary Care Provider Un available Aury Valero MD Primary Care Provider [phone] No Ref-Primary, Physician Primary Care Provider Encounter Details Date Type Department Care Team (Late st Contact Info) Description 07/18/[address] [place] [id number] Paris Cordova MD ER ENCOUNTER (Primary Dx) Social History Tobacco Use Types Packs/Day Years Used Date Smoking Tobacco: Never Smokeless Tobacco: Never Alcohol Use Standard Drinks/Week Comments Not Currently 0 (1 standard drink = 0.6 oz pur e alcohol) Comments No Sex and Gender Information Value Date Recorded Sex Assigned at Not on file Legal Sex Female 4:05 AM [employer] Gender Identity Not on file Sexual Orientation Not on file documented as of this encounter Progress Notes * 07/18/2003 11:59 PM CSTAddended by: RAQUEL SHAH on: 07/22/2003,9:14 AM Modules accepted: Progress Notes 00 :00 Emergency Department Encounter-JOE AGUILAR) [Entered: [id number] Guardado scription ([facility])] : 99 CHIEF COMPLAINT: Vomiting and fever. HISTORY OF PRESENT ILLNESS: This is a 3-year-old female who has felt a little under the weather for a day and a half with low gr modesta fever. Now today, about six hours prior to coming in the emergency room, she started vomiting. Sh anshul has thrown up 6-8 times. She hasn't been able to keep anything down. Mom, who is , also has fever and vomiting. She didn't have morning sickness prior to the fever. PAST MEDICAL HISTORY: No chronic medical problems. MEDICATIONS: None. ALLERGIES: None. REVIEW OF SYSTEMS: Respiratory: N egative. Cardiovascular: Negative. GI: As above. : Negative. HEENT: As above. PHYSICAL EXAMINATION : Pulse: 147. Respirations: 38. Temperature: 108. O2 sats: 97%. SKIN is warm and dry. Color is good. There is no rash. HEAD is normocephalic. TMs are clear. EYES are normal. MOUTH, THROAT and upper air way are normal. LUNGS are clear without wheezing, rales or rhonchi. HEART is regular rhythm without m urmurs or gallops. ABDOMEN is soft, nontender. Bowel sounds are normal. EXTREMITIES are normal. JOSSE GENCY DEPARTMENT COURSE: An IV was established and she was given a 400 cc normal saline bolus and Zo alexis 2 mg IV piggyback which got rid of her nausea and vomiting. When she is rehydrated, she is awake , alert, active, playful and looking much better. She is back to her normal self according to mom. Sharon CHOU IMPRESSION: 1) Nausea and vomiting. 2) Mild to moderate dehydration. PLAN: 1) Clear liqui d diet. Advance as tolerated. 2) See M.D. as needed for signs of dehydration or if not better in 2-3 days. [id number] _ JOE FRITZ MD MT: Document: [id number] [place], [place] Name: CHAPIS LÓPEZ EMERGENCY ROOM ENCOUNTER Page 2 of 2 LCN: RENAE DSC: 07/18/2003 [place], [place] Na me: MR#: : Admit Date: CHAPIS LÓPEZ [id number] 2000 07/18/2003 Doctor: JOE VOGT MD EMERGENCY ROOM ENCOUNTER Page 1 of 2 Electronically filed by Raquel Shah 07/22/2003 9:14 AM documented in this encounter Plan of Treatment Not on file documented as of this encounter Visit Diagnoses Diagnosis ER ENCOUNTER- Primary documented in this encounter Care Teams Education Managers Relationship Specialty Start Date End Date Paris Cordova MD PCP - General 09/19/01 01/01/11 Aury Valero MD [address] [place] [address] PCP - General Pediatrics 01/02/11 04/17/22 No Ref-Primary, Physician PCP - General 04/18/22 documented as of this encounter
--- OUTSIDE RECORDS SUMMARY | 2025-05-24 10:27 | XMS_ITS | Patient Health Record ---
Author Organization [employer] [facility] [place] [place] Address [address] [place] [address] Care Team Providers Care Chief Nursing Officer Name Role Phone Kristi Rubio Primary Care Provider [phone] Allergies No Known Allergies Reason For Referral No Information Medications Medication SIG (Take, Route, Frequency, Duration) Notes Start Date End Date Status Magnesium Active Vitamin B6 Active Active Baby Aspirin Active Iron Active Probiotic Active Social History Tobacco Use: Social History Observation Description Date Details (start date - stop date) Never Smoker NA - NA Tobacco Use/Smoking Question Answer Notes Are you a nonsmoker Alcohol Screen (Audit-C) Question Answer Notes Did you have a drink containing alcohol in the p ast year? No Points 0 Interpretation Negative Plan Of Treatment No Information Insurance Providers Payer Name Payer Address Payer Phone Subscriber Number Group Number Insured Name Patient Relationship to Insured Coverage Start Date Coverage End Date [employer] - (Client Bill) [address], [place] [address] [id number] Brian Coombs Spouse - patient is the spouse of the insured Medical (General) History Medical History History ICD Code Anemia Depression / Anxiety Surgical History Surgery Date(Month/Year) D / C 09/2020
[2025-05-24 10:36] VITALS: BP 113/60; PULSE 107; RESP 18; TEMP 36.9; O2SAT 98; BMI 24.5
[2025-05-24 11:08] LABS: Appearance Urine Clear (Clear)
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
--- OUTSIDE RECORDS SUMMARY | 2025-05-24 11:34 | XMS_ITS ---
Author Organization [facility] Source Produ ction (ClinicalSummary Clone) Address Unknown Care Team Providers Care Mandrel Press Hand Name Role Phone Unavailable Primary Care Physician Unavailab le Results * [UNITY] CARRIER SCREEN Performed by: [employer] Component Value Range Date Sickle Cell Disease/Beta-Thalassemia/Hemo globinopathies carrier screen NEGATIVE 05/19/2025 03:51 am [facility] Alpha-Thalassemia carrier screen NEGATIVE 05/19/2025 03:51 am [place] Cystic Fibrosis carrier screen NEGATIVE 05/19/2025 03:51 am [place] Spinal Muscular Atrophy carrier screen NEGATIVE 2 SMN1 copies, SNP not present 05/19/2025 03:51 am [place] For detailed report, see PDF See PDF 05/19/2025 03:51 am [place] 05/19/2025 03:5 1 am [facility] Social History Observation Value Start Date End Date
--- OUTSIDE RECORDS SUMMARY | 2025-05-24 11:34 | XMS_ITS ---
Author Organization [facility] Source Produ ction (ClinicalSummary Clone) Address Unknown Care Team Providers Care Skidder Name Role Phone Unavailable Primary Care Physician Unavailab le Results * [UNITY] ANEUPLOIDY NIPT Performed by: [employer] Component Value Range Date Fraction 11.0% 05/17/2025 08 :03 pm UTC 22q11.2 Microdeletion LOW RISK <1 in 10,000 05/17/2025 08:03 pm UTC Sex Chromosome Aneuploidy NOT DETECTED 08:03 pm UTC Monosomy X LOW RISK <1 in 10,000 2024 08:03 pm UTC Trisomy 13 LOW RISK <1 in 10,000 2024 08:03 pm UTC Trisomy 18 LOW RISK <1 in 10,000 2024 08:03 pm UTC Trisomy 21 LOW RISK <1 in 10,000 2024 08:03 pm UTC Sex MALE 05/17/2025 08:0 3 pm UTC Gestation TAMEZ 05/17/20 08:03 pm UTC For detailed report, see PDF See PDF 05/17/2025 08:03 pm UTC 05/17/2025 08:0 3 pm UTC Social History Observation Value Start Date End Date
== END 2025-05-24 11:55 | disposition home or self-care (01) ==
PROVIDERS: Emergency Provider Emergency Medicine Emergency Medical Services
DX: R30.0 Dysuria (principal); Z3A.13 13 weeks gestation of pregnancy
CPT/HCPCS: 51798; 81001; 87086; 99283; 99284

== ENCOUNTER 2025-07-19 13:42 | Outpatient (CLI) | payer BC, OTHER, SELFPAY ==
--- NOTE | 2025-07-19 14:00 | CRLHL7_ITS ---
For Patients: As a result of the Century Cures Act, medical imaging exams and procedure reports are released immediately into your electronic medical record. You may view this report before your referring provider. If you have questions, please contact your health care provider. OBSTETRICAL ULTRASOUND ??? ANATOMY SURVEY INDICATION: anatomy survey. CLINICAL HISTORY: ROSARIO by ultrasound: 12/02/2024 Gestational age: 20 weeks 4 days TECHNIQUE: Real-time sarmiento-scale transabdominal and transvaginal imaging of the fetus was performed. Transvaginal imaging was performed for better visualization of the cervix and placenta. PRIOR ULTRASOUND: 04/13/2025, 03/31/2025. FINDINGS: position: Vertex Cervix: Visualized Technique: Transvaginal Length of closed cervix: 4.2 cm Placenta position: Posterior Technique: Transvaginal Previa: Yes Umbilical cord: 3-vessel cord Placental insertion: Central Amniotic fluid: 4.6 cm SDP (greater than/equal to 2 to less than 8 cm) ANATOMY SURVEY: Observed Structures Cerebellum: Yes; 2.1 cm, 21 weeks 0 days Cisterna magna: Yes; 6.8 mm Nuchal fold: Yes; 5.5 mm Lateral ventricle: Yes; 6.5 mm CSP: Yes Midline falx: Yes Choroid plexus: Yes Spine: Yes Stomach: Yes Abdominal cord insert: Yes Urinary bladder: Yes Kidneys: Yes Diaphragm: Yes Nose/lips: Yes Orbital view: Yes Profile: Yes Upper extremities: Yes Lower extremities: Yes Hands: Yes Feet: Yes 4-chamber heart: Yes LVOT: Yes RVOT: Yes 3VV: Yes 3VTV: Yes BIOMETRY BPD: 4.9 cm, 20 weeks 6 days, 61.4% HC: 18.2 cm, 20 weeks 4 days, 43.1% AC: 16.3 cm, 21 weeks 2 days, 69.5% FL: 3.2 cm, 20 weeks 0 days, 24.7% FL/AC: 19.8% HC/AC ratio: 1.1 heart rate: 139 bpm age by this ultrasound: 20 weeks 5 days ROSARIO by this ultrasound: 12/01/2025 Estimated weight: 275.2 grams (0 pounds 13 ounces) Percentile by ROSARIO: 55.6% IMPRESSION: 1) Concordance of clinical and sonographic dates. 2) Normal anatomic survey. 3) With transvaginal imaging, it appears that the posterior placenta edge overlies the internal cervical os. Follow-up at 28 weeks is recommended. BJ DIXON M.D. [email or web address] Transcribed: 5:[address]/Dictated by: Bj Dixon MD @ 07/19/2025 3:53:00 PM (Electronically Signed)
== END 2025-07-19 13:43 | disposition home or self-care (01) ==
LOC: US 13:43
PROVIDERS: Visit Provider Advanced Practice Midwife
DX: Z34.92 Encounter for supervision of normal pregnancy, unspecified, second trimester (principal); Z3A.20 20 weeks gestation of pregnancy
CPT/HCPCS: 76805; 76817